=== PATIENT | male | born 1975 | race Two or more races ===

== ENCOUNTER 2021-01-29 15:15 | Emergency (ER) | payer MEDICAID ==
[~2021-01-29] VITALS: Ht 157.5 cm; Wt 52.3 kg
[2021-01-29] MEDS ORDERED: IBUPROFEN 100 MG/5 ML ORAL.SUSP. PO ONE (17:15)
[2021-01-29] MEDS ORDERED: BENZONATATE 100 MG CAPSULE. PO ONE (17:15)
[2021-01-29] MEDS ORDERED: DEXAMETHASONE SOD PHOS 20 MG/5 ML VIAL. PO ONE (17:15)
[2021-01-29 17:51] LABS: INFLUENZA A PATIENT NEGATIVE (NEGATIVE); INFLUENZA B PATIENT NEGATIVE (NEGATIVE)
--- NOTE | 2021-01-29 18:51 | PHYS DOC ---
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 Patient is a 45-year-old male presents to the emergency department complaining of fevers, chills, headaches, cough and congestion since yesterday. Patient reports he fears he may have the COVID-19 virus. Patient does report receiving the COVID-19 virus vaccination series 3 months ago, denies receiving a flu vac cination, denies chest pains or shortness of breath, denies nausea, vomiting, diarrhea, denies loss of taste/smell , patient denies other physical complaints or physical concerns. Patient reports he missed work yesterday and requires work excuse. Review of Systems: Review of Systems: 14 body systems of review of systems have been reviewed. See HPI for pertinent positives and negative responses, otherwise all other systems are negative, nonpertinent or noncontributory. Constitutional: Negative except as outlined in HPI above. Skin: Negative except as outlined in HPI above. Eyes: Negative except as outlined in HPI above. HENT: Negative except as outlined in HPI above. Respiratory: Negative except as outlined in HPI above. Cardiovascular: Negative except as outlined in HPI above. GI: Negative except as outlined in HPI above. : Negative except as outlined in HPI above. Musculoskeletal: Negative except as outlined in HPI above. Integument: Negative except as outlined in HPI above. Neurologic: Negative except as outlined in HPI above. Endocrine: Negative except as outlined in HPI above. Lymphatic: Negative except as outlined in HPI above. Psychiatric: Negative except as outlined in HPI above. Heart Score: C/O Chest Pain: No Risk Factors: Risk Factors: DM, Current or recent (<one month) smoker, HTN, HLP, family history of CAD, obesity. Risk Scores: Score 0 - 3: 2.5% MACE over next 6 weeks - Discharge Home Score 4 - 6: 20.3% MACE over next 6 weeks - Admit for Clinical Observation Score 7 - 10: 72.7% MACE over next 6 weeks - Early Invasive Strategies Current Medications: Current Medications Medications (Trade) Dose Ordered Sig/[place] Start Time Stop Time Status Last Admin Dose Admin Benzonatate (Tessalon Perle) 100 mg 1X ONCE 01/29/21 17:15 01/29/21 17:35 DC 01/29/21 17:55 100 MG Dexamethasone Sodium Phosphate (Decadron) 10 mg 1X ONCE 01/29/21 17:15 01/29/21 17:35 DC 01/29/21 17:55 10 MG Ibuprofen (Children'S Motrin) 500 mg 1X ONCE 01/29/21 17:15 01/29/21 17:35 DC 01/29/21 17:55 500 MG Allergies: Allergies: Allergies Coded Allergies Type Severity Reaction Last Updated Verified No Known Drug Allergies 01/29/21 No Physical Exam: PE: Constitutional: Well developed, well nourished, no acute distress, non-toxic appearance. 41-year-old male in no apparent distress. HENT: Normocephalic, atraumatic. Oropharynx moist, bilateral peritonsillar erythema without cobblestoning or exudative drainage, no uvular edema or deviation appreciated, no laryngeal edema appreciated, patient speaking in normal voice tones. No drooling, no trismus, bilateral TMs intact within normal limits no drainage from bilateral external auditory canals, no lymphadenopathy of the head or neck appreciated. Eyes: Conjunctiva normal, no discharge. Neck: Normal range of motion, no stridor. No meningismus signs, no nuchal rigidity Cardiovascular: No cyanosis appreciated, distal cap refill less than 2 seconds. Regular rate and rhythm. Lungs & Thorax: Patient is in no respiratory distress, no audible adventitious lung sounds appreciated. Lung sounds clear to auscultate all lung guevara, patient did elicit cough with bronchovesicular sounds during cough otherwise no adventitious lung sounds appreciate. Abdomen: Nontender, no abnormalities noted. Skin: Warm, dry, no erythema, no rash. Back: No tenderness, no deformities. Extremities: No tenderness, no cyanosis, no clubbing, ROM intact, no edema. Neurologic: Alert and oriented X 3, normal motor function, normal sensory function, no focal deficits noted. Psychologic: Affect normal, judgement normal, mood normal. Current Patient Data: Labs: Laboratory Tests Test 01/29/21 17:27 Influenza Type A Antigen Negative (NEGATIVE) Influenza Type B Antigen Negative (NEGATIVE) SARS-CoV-2 Antigen (Rapid) Positive (NEGATIVE) *A Vital Signs: Vital Signs Date Time Temp Pulse Resp B/P (MAP) Pulse Ox O2 Delivery O2 Flow Rate FiO2 01/29/21 16:40 100.3 101 18 111/74 (86) 98 Room Air 100.3 EKG: EKG: [] Radiology/Procedures: Radiology/Procedures: [] Course & Med Decision Making: Course & Med Decision Making Pertinent Labs and Imaging studies reviewed. (See chart for details) 45-year-old male, vital signs reviewed, presents to the emergency department with concerns he may have the COVID-19 virus. Patient's physical examination consistent with viral illness, will order rapid flu A/B, rapid COVID-19 testing with PCR, rapid strep testing will give ibuprofen for generalized body aches, Tessalon Perle for cough, 10 mg oral Decadron. Patient's rapid strep and rapid flu negative, patient's rapid COVID-19 testing positive, PCR still pending. Discussed findings with patient, reviewed COVID-19 virus information with patient, will give work excuse. Process ongoing over-th e-counter ibuprofen or acetaminophen for recurrent fevers and chills or aches and pains. Strict follow-up with primary care soon for ongoing management of COVID-19 symptoms. Return to ER precautions and concerns. Patient gave verbal understanding of and is amenable to ED discharge planning. Discussed with the patient all findings and diagnostic testing as well as the need to follow-up with their primary care provider for further evaluation and treatment or return to the ED if any new or worsening symptoms. Strict return precautions were also discussed at length, the patient voiced understanding and agreement with the discharge planning. The patient was nontoxic in appearance, in no apparent distress, and hemodynamically stable at the time of disposition. Used special education preschool teacher service #[id number] physical exam and discharge planning. Solomon Disclaimer: Solmoon Disclaimer: This electronic medical record was generated, in whole or in part, using a voice recognition dictation system. Departure Departure Impression: Primary Impression: COVID-19 virus infection Disposition: HOME / SELF CARE / HOMELESS Condition: GOOD Referrals: NO PCP (PCP) Additional Instructions: You were seen today in the emergency department for viral illness symptoms. Your rapid flu and rapid strep were negative today. However your rapid COVID-19 test was positive, there is a PCR test still pending which should be available next 2 days. I have attached COVID-19 virus information to this document please review. I am providing you a work excuse. Please practice good handwashing hygiene, drink plenty of fluids, you may use [id number] Tylenol and/or Motrin for ongoing aches and pains and return no fever or chills. I suspect your symptoms may last 2 or more weeks. Please follow-up with your primary care physician for ongoing symptoms. Return to the emergency department for worsening symptoms or other concerns. Thank you for visiting our Emergency Department. It was a pleasure taking care of you today in the emergency department and we appreciate you trusting us with your care. If any additional problems come up don't hesitate to return to visit us. Please follow up with your primary care provider so they can plan additional care if needed and know about the problem that you had. If symptoms worsen come back to the Emergency Department. Any concerning symptoms that start such as chest pain, shortness of air, weakness or numbness on one side of the body, running high fevers or any other concerning symptoms return to the ER. EMERGENCY DEPARTMENT GENERAL DISCHARGE INSTRUCTIONS Thank you for coming to [facility] Emergency Department (ED) today and trusting us with you care. We trust that you had a positive experience in our Emergency Department. If you wish to speak to the department management, you may call the Director at [phone]. YOUR FOLLOW UP INSTRUCTIONS ARE FOLLOWS: 1. Do you have a private Doctor? If you do not have a private doctor, please ask for a resource list of physicians or clinics that may be able to assist you with follow up care. 2. The Emergency Physicain has interpreted your x-rays. The X-Ray specialist will also review them. If there is a change in the findings, you will be notified in 48 hours when at all possible. 3. A lab test or culture has been done, your results will be reviewed and you will be notified if you need a change in treatment. ADDITIONAL INSTRUCTIONS AND INFORMATION: 1. Your care today has been supervised by a physician who is specially trained in emergency care. Many problems require more than one evaluation for a complete diagnosis and treatment. We recommend that you schedule your follow up appointment as recommended to ensure complete treatment of you illness or injury. If you are unable to obtain follow up care and continue to have a problem, or if your condition worsens, we recommend that you return to the ED. 2. We are not able to safely determine your condition over the phone nor are we able to give sound medical advice over the phone. For these safety reasons, if you call for medical advice we will ask you to come to the ED for further evaluation. 3. If you have any questions regarding these discharge instructions please call the ED at [phone]. SAFETY INFORMATION: In the interest of safety, wellness, and injury prevention; we encourage you to wear your sealbelt, if you smoke; quite smoking, and we encourage family to use a protective helmet for bicycling and other sporting events that present an increased risk for head injury. IF YOUR SYMPTOMS WORSEN OR NEW SYMPTOMS DEVELOP, OR YOU HAVE CONCERNS ABOUT YOUR CONDITION; OR IF YOUR CONDITION WORSENS WHILE YOU ARE WAITING FOR YOUR FOLLOW UP APPOINTMENT; EITHER CONTACT YOUR PRIMARY CARE DOCTOR, THE PHYSICIAN WHOSE NAME AND NUMBER YOU WERE GIVEN, OR RETURN TO THE ED IMMEDIATELY. BURAK MCCARTY APRN Jan 29, 2021 18:51
[2021-01-29 19:00] VITALS: BP 135/78
--- NOTE | 2021-01-29 19:09 | RAD ---
EXAMINATION: XR CHEST 1V CLINICAL HISTORY: Cough, congestion, PUI EXAM DATE/TIME: 01/29/2021 5:45 PM COMPARISON: None FINDINGS: Lines, Tubes, and Devices: None. Cardiomediastinal Silhouette: Within normal limits. Lungs and Pleura: Mild opacities in the right greater than left lower lung zones. No evidence of pleu ral effusion or pneumothorax. Bones and Soft Tissues: No acute osseous abnormality. IMPRESSION: Mild opacities in the right greater than left lower lung zones. Electronically signed by: Carlos Wick DO (01/29/2021 7:06 PM) CARLINE
== END 2021-01-29 19:10 | disposition home or self-care (01) ==
LOC: ER 15:15
DX: U07.1 COVID-19 (principal)
CPT/HCPCS: 71045; 87070; 87426; 87804; 87880; 99284; J1100